=== PATIENT | female | born 1960 | race Caucasian/White ===

== ENCOUNTER → 2019-11-29 13:51 | Outpatient (CLI) | payer OTHER, BC, SELFPAY ==
--- NOTE | ~2019-11-29 | XR_ITS ---
EXAMINATION: XR abdomen/kub 1V DATE: 11/29/2019 14:09 INDICATION: Abnormal capsule endoscopy study 2 weeks prior. Deficiency anemia. TECHNIQUE: A supine view of the abdomen on 2 radiographs was obtained. COMPARISON: CT dated 08/22/2019 FINDINGS: Cholecystectomy clips in the right upper quadrant. Gastric stimulator ejects over the left lower quad rant with 2 leads with distal tips projecting over the body of the stomach. Moderate amount of gas sc attered throughout the colon with additional gas filling the appendix in the right lower quadrant. No dilated loops of gas-filled bowel to suggest obstruction. The reported capsule endoscope is not visu alized. Lung bases are clear. Moderate lumbar spondylosis. IMPRESSION: 1. Normal bowel gas pattern. No capsular endoscope identified although very small portion of the late ralmost left abdomen is excluded from the bccpv-wv-uinj and a small portion of the left lower quadran t of the abdomen is obscured by a gastric stimulator. Reviewed, dictated and finalized at location A. ARY SERVICE AIDE IMPRESSION: 1. Normal bowel gas pattern. No capsular endoscope identified although very sma ll portion of the lateralmost left abdomen is excluded from the wgmqr-bn-isou a nd a small portion of the left lower quadrant of the abdomen is obscured by a g astric stimulator.
== END ==
PROVIDERS: PCP Family Medicine Adolescent Medicine
DX: D50.9 Iron deficiency anemia, unspecified (principal); R63.4 Abnormal weight loss
CPT/HCPCS: 74018

== ENCOUNTER → 2020-08-01 15:39 | Outpatient (CLI) | payer OTHER, BC, SELFPAY ==
--- NOTE | ~2020-08-01 | XR_ITS ---
EXAMINATION: XR lumbar spine 2-3V DATE: 08/01/2020 16:12 INDICATION: Low back pain. TECHNIQUE: 3 views of lumbar spine were obtained. COMPARISON: CT abdomen and pelvis 08/12/2019 FINDINGS: There is 6 degrees dextrocurvature of lumbar spine. There is 3 mm retrolisthesis of L3 on L 4. There is mild chronic anterior wedging of T12 and L1 vertebral bodies. There is mildly decreased d isc height at L2-L3 and severely decreased disc height at L3-L4. There is multilevel moderate to diallo re facet joint osteoarthritis. Surgical clips in the right upper quadrant are likely from cholecystec latha. IMPRESSION: 1. Severe lumbar spondylosis. Reviewed, dictated and finalized at location A.
== END ==
PROVIDERS: PCP Family Medicine Adolescent Medicine; Visit Provider Family Medicine Adolescent Medicine
DX: M54.5 Low back pain (principal); M47.816 Spondylosis without myelopathy or radiculopathy, lumbar region
CPT/HCPCS: 72100

== ENCOUNTER → 2020-11-08 16:09 | Outpatient (CLI) | payer OTHER, BC, SELFPAY ==
--- NOTE | ~2020-11-08 | MM_ITS ---
EXAMINATION: MM screening [facility] BI w jay HISTORY: Screening mammogram TECHNIQUE: Craniocaudal and mediolateral oblique 3-D tomosynthesis images were obtained and synthetic 2-D images were generated. CAD analysis was submitted and interpreted. COMPARISON: 09/15/2017, 12/14/2013, 11/30/2013 BREAST PARENCHYMAL COMPOSITION: There are scattered areas of fibroglandular density. FINDINGS: There is no evidence of suspicious mass, calcification, or architectural distortion to sugg est malignancy in either breast. There has been no suspicious interval change. IMPRESSION: 1. No mammographic evidence of malignancy. 2. Recommend routine screening mammography in one year. BI-RADS Category 1: Negative Reviewed, dictated and finalized at location A. HANDISING LEAD
== END ==
PROVIDERS: PCP Family Medicine Adolescent Medicine; Visit Provider Obstetrics & Gynecology
DX: Z12.31 Encounter for screening mammogram for malignant neoplasm of breast (principal)
CPT/HCPCS: 77063; 77067

== ENCOUNTER 2021-09-23 11:33 | Outpatient (CLI) | payer OTHER, BC, SELFPAY ==
[2021-09-23 12:10] LABS: Hemoglobin 14.9 g/dL (12.0-15.0); Mean Corpuscular HGB Conc 31.7 g/dl (32-36); Mean Corpuscular Hemoglobin 30.8 pg (26-34); Mean Corpuscular Volume 97.3 fl (80-100); Mean Platelet Volume 9.7 fl (7.4-10.4); Platelet Count Result 207 k/mm3 (150-375); Red Blood Count 4.83 M/mm3 (4.2-5.4); Red Cell Distribution Width 13.2 % (11.5-14.5); White Blood Count 7.2 K/mm3 (4.5-10.0)
[2021-09-23 12:19] LABS: Alanine Aminotransferase 18 U/L (4-35); Albumin Level 4.5 g/dL (3.5-5.1); Alkaline Phosphatase 106 U/L (38-126); Anion Gap 6 mmol/L (8-16); Aspartate Amino Transferase 27 U/L (14-36); Bilirubin,Total 0.5 mg/dL (0.2-1.3); Blood Urea Nitrogen 13 mg/dL (7-17); Calcium 9.1 mg/dL (8.4-10.2); Carbon Dioxide 26 mmol/L (22-30); Chloride 105 mmol/L (98-107); Estimated Glomerular Filt Rate > 60; Glucose 66 mg/dL (65-110); Potassium 3.9 mmol/L (3.4-5.0); Sodium 137 mmol/L (137-145)
[2021-09-27 05:14] LABS: Insulin Level Total 6.1 uIU/mL (<=19.6)
== END 2021-09-23 11:34 | disposition home or self-care (01) ==
LOC: ANHLAB 11:37
PROVIDERS: PCP Family Medicine Adolescent Medicine; Visit Provider Family Medicine Adolescent Medicine
DX: D50.9 Iron deficiency anemia, unspecified (principal); R53.83 Other fatigue; E16.2 Hypoglycemia, unspecified
CPT/HCPCS: 36415; 80053; 83525; 85027

== ENCOUNTER 2024-02-09 10:50 | Outpatient (CLI) | payer BC, SELFPAY | END 2024-02-09 10:51 | disposition home or self-care (01) | LOC: ANHAUDIO 10:51 | PROVIDERS: PCP Family Medicine Adolescent Medicine; Visit Provider Family Medicine Adolescent Medicine | DX: H90.3 Sensorineural hearing loss, bilateral (principal); H93.13 Tinnitus, bilateral | CPT/HCPCS: 92557; 92567 ==

== ENCOUNTER 2024-08-13 09:40 | Emergency (ER) | payer MEDICARE, SELFPAY ==
--- NOTE | 2024-08-13 09:43 | ED.FEMALEGU ---
HPI - Female Genitourinary General Chief complaint: Urogenital-Female Stated complaint: Urinary Problems Time Seen by Provider: 08/13/24 09:41 Source: patient Mode of arrival: ambulatory Limitations: no limitations History of Present Illness HPI Narrative: Ana is a 63-year-old female patient presenting to the clinic today complaints of possible UTI. She reports she has been having lower suprapubic pain, low back pain, urinary frequency, urgency, and some burning with urination/dark colored urine. States symptoms started 3 days ago. No known fever or chills. She states that she is getting ready to go on a trip to [place]. Last bowel movement was yesterday and hard. Took hydrocodone this morning for the discomfort. Related Data Home Medications Medication Instructions Recorded Confirmed prochlorperazine maleate 10 mg 10 mg PO Q8H PRN Nausea And 06/11/22 08/13/24 tablet Vomiting omeprazole 40 mg capsule,delayed 40 mg PO DAILY 08/13/24 08/13/24 release ondansetron 4 mg disintegrating 4 mg PO Q6H 08/13/24 08/13/24 tablet Allergies Allergy/AdvReac Type Severity Reaction Status Date / Time metoclopramide Allergy Intermediate Anaphylactic Verified 08/13/24 09:55 Shock Review of Systems Review of Systems: Pertinent positives per HPI. Patient denies any fever, chills, rash, headache, visual changes, dizziness, cough, runny nose, sore throat, shortness of breath, chest pain, palpitations, nausea, vomiting, diarrhea. PMFSH Past Medical History Medical History Abnormal uterine bleeding Anemia Ankle fracture, left Back pain Depression Diverticulitis Endometriosis Gastroparesis GERD (gastroesophageal reflux disease) Hiatal hernia History of blood transfusion Hypertension Migraines Pancreatitis (2015) Rectal polyp Seasonal allergies Surgical History Surgical History History of arthroscopy of left knee History of bladder surgery History of section History of cholecystectomy History of colonoscopy History of hysterectomy History of repair of hiatal hernia (02/2019) History of tubal ligation Hx of local excision of skin lesion Family History Family History Father Malignant neoplasm of prostate Family history of diabetes mellitus in first degree relative Mother Acute myocardial infarction Other Diabetes mellitus Family history of cardiovascular disease Hypertension Social History Social History Smoking status: Former smoker Tobacco type: cigarettes Alcohol intake: current Gender identity (if verbalized by the patient): Female Comments At the time of my signature, I reviewed and agree with the nursing past medical, surgical, social, and family history. There is no relevant family history pertinent to the patient complaint. Exam Narrative: General: Well-developed, obese in no apparent distress. Head: Normocephalic, atraumatic. Cardio: Regular rate and rhythm, s1 and s2 normal, no murmur appreciated. Resp: Clear to auscultation bilaterally, no rhonchi, rales, wheezing or rubs. Abdomen: Soft, pliable, bowel sounds present in all quadrants, suprapubic tender to palpation, no organomegly, no CVAT tenderness. Course Course Emergency Course: Portions of this record may have been created with voice recognition software. Level of Care: Express Care Visit Vital Signs Vital signs: Vital signs reviewed MDM - Female Genitourinary MDM Narrative Medical decision making narrative: At the time of visit patient is resting comfortably on the exam table. Patient appears to be nontoxic. Labs: UA dip positive for trace of blood protein, trace of blood, bili, and specific gravity was high. Plan: I suspect patient is having UTI symptoms-possibly constipation as well. Will send in a 5 day course of Macrobid and send urine for culture as patient is having UTI symptoms with protein urea. Supportive measures were discussed with the patient and they voiced understanding discharge instructions and agrees to treatment plan. Return precautions reviewed Differential Diagnosis Differential diagnosis: Likely urinary tract infection and cystitis Discharge Plan Discharge Clinical Impression: Symptoms of urinary tract infection Patient Disposition: Home, Self-Care Condition: Stable Instructions: Antibiotic Form, Urinary Tract Infection in Women (ED) Additional Instructions: Increase fluids and fiber in your diet May take MiraLax daily as needed for constipation Urinalysis shows trace of protein, trace of blood, bili, and high specific gravity. We will send urine for culture Take Macrobid as prescribed May take oimz-flv-iqroqow azo for your symptoms Follow-up with your primary care doctor in 5-7 days if symptoms persist or sooner if they worsen Prescriptions: New nitrofurantoin monohyd/m-cryst [Macrobid] 100 mg capsule 100 mg PO Q12H 5 Days Qty: 10 0RF Rx Instructions: must administer with a meal/food No Action ondansetron 4 mg Tablet,Disintegrating 4 mg PO Q6H omeprazole [Prilosec] 40 mg Capsule,Delayed Release(Dr/Ec) 40 mg PO DAILY prochlorperazine maleate 10 mg tablet 10 mg PO Q8H PRN (Reason: Nausea And Vomiting) venlafaxine 75 mg capsule,extended release 24hr See Rx Instructions .ROUTE .COMPLEX Qty: 90 3RF Dose Instruction: TAKE ONE CAPSULE BY MOUTH DAILY Rx Instructions: TAKE ONE CAPSULE BY MOUTH DAILY oopsqiohwd-adcfdoilqhdxe-snjh [Fioricet] 50-300-40 mg capsule 1 cap PO TID PRN (Reason: migraine headache) Qty: 14 0RF valsartan 320 mg tablet 320 mg PO DAILY Qty: 90 2RF diltiazem HCl 180 mg capsule,extended release 24hr See Rx Instructions .ROUTE .COMPLEX Qty: 90 3RF Dose Instruction: TAKE 1 CAPSULE BY MOUTH DAILY Rx Instructions: TAKE 1 CAPSULE BY MOUTH DAILY lorazepam 1 mg tablet 1 mg PO BID PRN (Reason: anxiety) Qty: 180 1RF hydrocodone-acetaminophen 5-325 mg tablet 1 tablet PO TID PRN (Reason: pain) Qty: 90 0RF Follow-up/Referrals: Neymar Rueda MD [Primary Care Provider] - Time of Disposition: 10:09 Quality NIHSS Nursing Documentation ED NIHSS nursing documentation: reviewed/agree
[2024-08-13 09:53] VITALS: BP 132/93; PULSE 77; RESP 18; TEMP 36.3; O2SAT 97
[2024-08-13 09:58] VITALS: BP 132/93; PULSE 77; RESP 18; TEMP 36.3; O2SAT 97
[2024-08-13 09:59] LABS: EDUAAPPEAR Cloudy; EDUABILI 1+ (Negative); EDUABLOOD Trace (Negative); EDUACOLOR1 Yellow; EDUAGLUCOSE Negative (Negative); EDUAKETONE Trace (Negative); EDUALEUKO Negative (Negative); EDUANITRATE Negative (Negative); EDUAPH 5.5; EDUAPROTEIN Trace (Negative)
== END 2024-08-13 10:15 | disposition home or self-care (01) ==
PROVIDERS: Emergency Provider Nurse Practitioner Family; PCP Family Medicine Adolescent Medicine
DX: R30.0 Dysuria (principal); R35.0 Frequency of micturition; R39.15 Urgency of urination; R10.30 Lower abdominal pain, unspecified; M54.50 Low back pain, unspecified; Z80.9 Family history of malignant neoplasm, unspecified; K21.9 Gastro-esophageal reflux disease without esophagitis; I10 Essential (primary) hypertension; Z87.891 Personal history of nicotine dependence
CPT/HCPCS: 81003; 87086; 99213; G0463

== ENCOUNTER 2025-08-02 07:12 | Outpatient (CLI) | payer MEDICARE, SELFPAY ==
--- OUTSIDE RECORDS SUMMARY | 2024-06-09 07:46 | XMS_ITS ---
Author Organization [facility] Address [address] [address] Care Team Providers Care Audio Experience Expert Name Role Phone Neymar Calvin Primary Care Provider Unavail neela Coon MD, Valdemar [facility] REASON FOR VISIT refill MEDICATIONS Medication SIG (Take, Route, Fr equency, Duration) Notes Start Date End Date Status oxyCODONE HCl 5 MG 1-2 tablet as needed , max daily allowance: 6 tablets Orally every 4-6 hrs 06/09/2024 Active Encounters Encounter Location Date Provider Diagnosis [facility] [address] [address] 06/09/2024 Valdemar Coon MD PLAN OF TREATMENT Medication Medication Name Sig Start Date Stop Date Notes oxyCODONE HCl 5 MG 1-2 tablet as needed , max daily allowance: 6 tablets Orally every 4-6 hrs 06/09/2024
--- OUTSIDE RECORDS SUMMARY | 2024-06-24 05:30 | XMS_ITS ---
Author Organization [facility] Address [address], [place] [address] Care Team Providers Care Therapy Aide Name Role Phone Neymar Calvin Primary Care Provider Unavail neela Coon MD, Valdemar [facility] [phone] REASON FOR VISIT refill MEDICATIONS Medication SIG (Take, Route, Fr equency, Duration) Notes Start Date End Date Status oxyCODONE HCl 5 MG 1-2 tablet as needed , max daily allowance: 6 tablets Orally every 4-6 hrs 06/24/2024 Active Encounters Encounter Location Date Provider Diagnosis [facility] [address], [place] [address] 06/24/2024 Valdemar Coon MD PLAN OF TREATMENT Medication Medication Name Sig Start Date Stop Date Notes oxyCODONE HCl 5 MG 1-2 tablet as needed , max daily allowance: 6 tablets Orally every 4-6 hrs 06/24/2024
--- OUTSIDE RECORDS SUMMARY | 2024-07-01 04:13 | XMS_ITS ---
Author Organization [facility] Address [address] [address] Care Team Providers Care Hot Metal Mixer Operator Name Role Phone Neymar Calvin Primary Care Provider Unavail able Shaggy MERINO, Valdemar Unavailable REASON FOR VISIT PT Order Encounters Encounter Location Date Provider Diagnosis [facility] [address] [place] [address] 07/01/2024 Valdemar Coon MD PLAN OF TREATMENT No Information
--- OUTSIDE RECORDS SUMMARY | 2024-07-11 07:10 | XMS_ITS ---
Author Organization [facility] Address [address] [address] Care Team Providers Care Market Research Coordinator Name Role Phone Neymar Calvin Primary Care Provider Unavail neela Coon MD, Valdemar [facility] REASON FOR VISIT refill MEDICATIONS Medication SIG (Take, Route, Fr equency, Duration) Notes Start Date End Date Status oxyCODONE HCl 5 MG 1-2 tablet as needed , max daily allowance: 6 tablets Orally every 4-6 hrs 07/11/2024 Active Encounters Encounter Location Date Provider Diagnosis [facility] [address], [place] [address] 07/11/2024 Valdemar Coon MD PLAN OF TREATMENT Medication Medication Name Sig Start Date Stop Date Notes oxyCODONE HCl 5 MG 1-2 tablet as needed , max daily allowance: 6 tablets Orally every 4-6 hrs 07/11/2024
--- OUTSIDE RECORDS SUMMARY | 2024-07-20 09:49 | XMS_ITS ---
Author Organization [facility] Address [address] [address] Care Team Providers Care Heel Scourer Name Role Phone Neymar Calvin Primary Care Provider Unavail neela Coon MD, [facility] REASON FOR VISIT tramadol MEDICATIONS Medication SIG (Take, Route, Fr equency, Duration) Notes Start Date End Date Status traMADol HCl 50 MG 1 tablet as needed O rally every 6 hours 07/20/2024 Active Encounters Encounter Location Date Provider Diagnosis [facility] [address] [address] 07/20/2024 Valdemar Coon MD PLAN OF TREATMENT Medication Medication Name Sig Start Date Stop Date Notes traMADol HCl 50 MG 1 tablet as needed Orally every 6 hours 07/20/2024
--- OUTSIDE RECORDS SUMMARY | 2024-07-20 10:00 | XMS_ITS ---
Author Organization [facility] Address [address] [place] [address] Care Team Providers Care Glass Wool Blanket Machine Feeder Name Role Phone Neymar Calvin Primary Care Provider Unavail able Shaggy MERINO, Valdemar Unavailable [phone] ALLERGIES Allergen (clinical drug ingredient) Drug/Non Drug Allergy documented on EMR Reaction Allergy Type Onset Date Status metoclopramide Reglan Unknown Drug Allergy Ac tive MEDICATIONS Medication SIG (Take, Route, Frequency, Duration) Notes Start Date End Date Status Prochlorperazine Prn for nausea; Prescribed By: Dr Villeda Active LORazepam Unknown Dilt-CD Qd; Prescribed By: Active Valsartan Unknown dilTIAZem HCl Unknow n Acarbose Unknown oxyCODONE HCl 5 MG 1-2 tablet as needed, max daily allowance: 6 tablets Orally every 4-6 hrs 05/19/2024 Not-Taking Venlafaxine HCl Unkn own oxyCODONE HCl 5 MG 1-2 tablet as needed, max daily allowance: 6 tablets Orally every 4-6 hrs 07/11/2024 Active oxyCODONE HCl 5 MG 1-2 tablet as needed, max daily allowance: 6 tablets Orally every 4-6 hrs 06/24/2024 Not-Taking Ondansetron Prn/nausea; Prescribed By: Active oxyCODONE HCl 5 MG 1-2 tablet as needed, max daily allowance: 6 tablets Orally every 4-6 hrs 06/09/2024 Not-Taking oxyCODONE HCl 5 MG 1-2 tablet as needed, max daily allowance: 6 tablets Orally every 4-6 hrs 06/03/2024 Not-Taking SOCIAL HISTORY Tobacco Use: Social History Observation Description Date Details (start date - stop date) Former Smoker 10/05/1978 - 10/05/1998 Sex Assigned At : Social History Observation Description Sex Assigned At Unknown Tobacco Use: Question Answer Notes Patient is a: former smoker When did you start smoking? 10/05/1978 When did you stop smoking? 10/05/1998 Alcohol screening: Question Answer Notes Did you have a drink contain ing alcohol in the past year? Yes How often did you have a dri nk containing alcohol in the past year? Two to three times per week (3 points) How many drinks did you have on a typical day when you were drinking in the past year? 3 or 4 (1 point) How often did you have six o r more drinks on one occasion in the past year? Less than monthly (1 point) Points 5 Interpretation Positive Encounters Encounter Location Date Provider Diagnosis [facility] [address], [place] [address] 07/20/2024 Valdemar Coon MD Aftercare following joint replacement surgery Z47.1 and Presence of left artificial knee joint Z96.652 ASSESSMENTS Encounter Date Diagnosis Assessment Notes Treatment Notes Treatment Clinical Notes 07/20/2024 Aftercare following joint replacement surgery (ICD-10 - Z47.1) 07/20/2024 Presence of left artificial knee joint (ICD-10 - Z96.652) PLAN OF TREATMENT No Information History and Physical Notes * HPI (History of Present Illness) Category Sub-Category Detail Notes Depression Screening PHQ-2 (2015 Edition) Little interest or pleasure in doing things?: Several days Feeling down, depressed, or hopeless?: S everal days Total Score: 2
--- OUTSIDE RECORDS SUMMARY | 2024-08-25 06:15 | XMS_ITS ---
Author Organization [facility] Address [address] [address] Care Team Providers Care Tent Assembler Name Role Phone Neymar Calvin Primary Care Provider Unavail able Shaggy MERINO, Valdemar Unavailable REASON FOR VISIT refill Encounters Encounter Location Date Provider Diagnosis [facility] [address] [place] [address] 08/25/2024 Valdemar Coon MD PLAN OF TREATMENT No Information
--- OUTSIDE RECORDS SUMMARY | 2024-08-31 09:00 | XMS_ITS ---
Author Organization [facility] Address [address] [place] [address] Care Team Providers Care Jewel Bearing Maker Name Role Phone Neymar Calvin Primary Care Provider Unavail able hSaggy MERINO, Valdemar Unavailable ALLERGIES Allergen (clinical drug ingredient) Drug/Non Drug Allergy documented on EMR Reaction Allergy Type Onset Date Status metoclopramide Reglan Unknown Drug Allergy Ac tive MEDICATIONS Medication SIG (Take, Route, Frequency, Duration) Notes Start Date End Date Status dilTIAZem HCl Unknow n Venlafaxine HCl Unkn own Dilt-CD Qd; Prescribed By: Active Valsartan Unknown LORazepam Unknown Acarbose Unknown oxyCODONE HCl 5 MG 1-2 tablet as needed, max daily allowance: 6 tablets Orally every 4-6 hrs 06/24/2024 Not-Taking oxyCODONE HCl 5 MG 1-2 tablet as needed, max daily allowance: 6 tablets Orally every 4-6 hrs 05/19/2024 Not-Taking oxyCODONE HCl 5 MG 1-2 tablet as needed, max daily allowance: 6 tablets Orally every 4-6 hrs 06/03/2024 Not-Taking oxyCODONE HCl 5 MG 1-2 tablet as needed, max daily allowance: 6 tablets Orally every 4-6 hrs 06/09/2024 Not-Taking Ondansetron Prn/nausea; Prescribed By: Dr.ROGELIO Active oxyCODONE HCl 5 MG 1-2 tablet as needed, max daily allowance: 6 tablets Orally every 4-6 hrs 07/11/2024 Active Prochlorperazine Prn for nausea; Prescribed By: Dr Villeda Active SOCIAL HISTORY Tobacco Use: Social History Observation [...] monthly (1 point) Points 5 Interpretation Positive VITAL SIGNS Height 69 in 08/31/2024 Weight 290 lbs 08/31/2024 BMI 42.82 kg/m2 08/31/2024 Encounters Encounter Location Date Provider Diagnosis [facility] [address] [place] [address] 08/31/2024 Valdemar Coon MD Encounter for follow-up Z09 and Presence of left artificial knee joint Z96.652 ASSESSMENTS Encounter Date Diagnosis Assessment Notes Treatment Notes Treatment Clinical Notes 08/31/2024 Encounter for follow-up (ICD-10 - Z09) 08/31/2024 Presence of left artificial knee joint (ICD-10 - Z96.652) PLAN OF TREATMENT No Information History and Physical Notes * HPI (History of Present Illness) Category Sub-Category Detail Notes Depression Screening PHQ-2 (2015 Edition) Little interest or pleasure in doing things?: Several days Feeling down, depressed, or hopeless?: S everal days Total Score: 2
--- OUTSIDE RECORDS SUMMARY | 2024-08-31 09:16 | XMS_ITS ---
Author Organization [facility] Address [address] [address] Care Team Providers Care Analog Ic Design Engineer Name Role Phone Neymar Calvin Primary Care Provider Unavail neela Coon MD, [facility] REASON FOR VISIT Tramadol MEDICATIONS Medication SIG (Take, Route, Fr equency, Duration) Notes Start Date End Date Status traMADol HCl 50 MG 1-2 tablets as neede d Orally q 12 hours for 7 days 08/31/2024 Active Encounters Encounter Location Date Provider Diagnosis [facility] [address] [address] 08/31/2024 Valdemar Coon MD PLAN OF TREATMENT Medication Medication Name Sig Start Date Stop Date Notes traMADol HCl 50 MG 1-2 tablets as neede d Orally q 12 hours for 7 days 08/31/2024
--- OUTSIDE RECORDS SUMMARY | 2024-11-11 05:00 | XMS_ITS ---
Author Organization [facility] Address [address] [place] [address] Care Team Providers Care Slotter Operator Name Role Phone Neymar Calvin Primary Care Provider Unavail neela Coon MD, Valdemar Unavailable [phone] Encounters Encounter Location Date Provider Diagnosis [facility] [address] [place] [address] 11/11/2024 Valdemar Coon MD PLAN OF TREATMENT No Information
--- NOTE | ~2025-08-02 | MM_ITS ---
EXAMINATION: MM screening reddy BI w jay HISTORY: Screening TECHNIQUE: Craniocaudal and mediolateral oblique 3-D tomosynthesis images were obtained and synthetic 2-D images were generated. CAD analysis was submitted and interpreted. COMPARISON: Comparison to multiple prior studies sequentially, with oldest reviewed study dated 09/15/2017. BREAST PARENCHYMAL COMPOSITION: Not dense: There are scattered areas of fibroglandular density. FINDINGS: There are developing clustered indeterminate calcifications in the upper outer quadrant of the right breast, middle third. There are punctate scattered calcifications of the left breast which are not particularly clustered and are monomorphic, benign-appearing. There are no new masses, calcifications or architectural distortion in the left breast to suggest malignancy. IMPRESSION: 1. Developing clustered indeterminate calcifications upper outer quadrant of the right breast. 2. Magnification views are recommended. BI-RADS Category 0: Incomplete: Needs additional imaging evaluation. Reviewed, dictated and finalized at location C. IMPRESSION: 1. Developing clustered indeterminate calcifications upper outer quadrant of th e right breast. 2. Magnification views are recommended. BI-RADS Category 0: Incomplete: Needs additional imaging evaluation.
--- OUTSIDE RECORDS SUMMARY | 2025-08-02 07:20 | XMS_ITS | Encounter Summary ---
Author Organization [facility] Address [address] [place] [address] Phone Care Team Providers Care Children'S Ministries Director Name Role Phone Neymar Rueda MD Primary Care Prov ider Miguelito Reese MD Unavailable [phone] Encounter Details Date Type Department Care Team (Late st Contact Info) Description 04/28/2024 Telephone [facility] ([facility] - [facility] Minimally Invasive Surgery [address] Advanced Medicine 12th Floor, [place] [address] Edward Noe MD PhD [address] [place] [address] Social History Tobacco Use Types Packs/Day Years Used Date Smoking Tobacco: Former Cigarettes 2 19 - 1992 Smokeless Tobacco: Never Alcohol Use Standard Drinks/Week Comments No 0 (1 standard drink = 0.6 oz pur e alcohol) AUDIT-C Answer Date Recorded Q1: How often do you have a drink containing alc ohol? Monthly or less 03/31/2023 Q2: How many drinks containi ng alcohol do you have on a typical day when you are drinking? 1 or 2 03/31/2023 Q3: How often do you have si x or more drinks on one occasion? Never 03/31/2023 Personal Safety Answer Date Recorded Have you ever been in or are you currently in a harmful physical or emotional relationship or is someone making you feel afraid or unsafe? Denies 03/31/2023 Comments No Sex and Gender Information Value Date Recorded Sex Assigned at Not on file Legal Sex Female 9:02 AM FORGING PRESS OPERATOR Gender Identity Not on file Sexual Orientation Not on file documented as of this encounter Plan of Treatment Upcoming Encounters Date Type Department Care Team (Latest Contact Info) Description 08/10/2025 7:30 AM FORGING PRESS OPERATOR Hospital Encounter [facility] Operating [address] [place] [address] Jad Trujillo MD [address] [id number] [place] [address] 08/10/2025 7:30 AM FORGING PRESS OPERATOR Anesthesia Event [facility] Operating [address] [place] [address] Harleen Wells B.A. 08/10/2025 7:30 AM FORGING PRESS OPERATOR - 08/10/2025 10:45 AM FORGING PRESS OPERATOR Surgery [facility] [address] [place] [address] Jad Trujillo MD [address] [id number] [place] [address] XI REPAIR VENTRAL HERNIA - LAPAROSCPIC ROBOTIC ASSISTED Scheduled Procedures Name Priority Associated Diagnoses Date/Ti me XI REPAIR VENTRAL HERNIA - LAPAROSCPIC ROBOTIC ASSISTED Incarcerated incisional hernia 08/10/2025 7:30 AM FORGING PRESS OPERATOR documented as of this encounter Visit Diagnoses Not on filedocumented in this encounter Care Teams Children'S Ministries Director Relationship Specialty Start Date End Date Neymar Rueda MD PCP - General 01/21/17 Miguelito Reese MD Consulting Physician General Surgery 02/03/19 documented as of this encounter
--- OUTSIDE RECORDS SUMMARY | 2025-08-02 07:20 | XMS_ITS | Encounter Summary ---
Author Organization [facility] Address [address] [facility] [address] [place] [address] Phone Care Team Providers Care Machine Driller Name Role Phone Neymar Rueda MD Primary Care Prov ider Miguelito Reese MD Unavailable [phone] Encounter Details Date Type Department Care Team (Late st Contact Info) Description 11/15/2019 Orders Only [facility] Scanning, Provider Social History Tobacco Use Types Packs/Day Years Used Date Smoking Tobacco: Former Cigarettes 2 19 1 974 - 1992 Smokeless Tobacco: Never Alcohol Use Standard Drinks/Week Comments No 0 (1 standard drink = 0.6 oz pur e alcohol) Comments No Sex and Gender Information Value Date Recorded Sex Assigned at Not on file Legal Sex Female 9:02 AM RESCUE INSTRUCTOR Gender Identity Not on file Sexual Orientation Not on file documented as of this encounter Plan of Treatment Upcoming Encounters Date Type Department Care Team (Latest Contact Info) Description 08/10/2025 7:30 AM RESCUE INSTRUCTOR Hospital Encounter [facility] Operating Room [address] [place] [phone] Jad Trujillo MD [address] [facility] [phone] [place] [address] 08/10/2025 7:30 AM RESCUE INSTRUCTOR Anesthesia Event [facility] Operating [address] [place] [address] Harleen Wells B.A. 08/10/2025 7:30 AM RESCUE INSTRUCTOR - 08/10/2025 10:45 AM RESCUE INSTRUCTOR Surgery [facility] Operating Room [address] [place] [address] Jad Trujillo MD [address] [facility] [phone] [place] [address] XI REPAIR VENTRAL HERNIA - LAPAROSCPIC ROBOTIC ASSISTED Scheduled Procedures Name Priority Associated Diagnoses Date/Ti me XI REPAIR VENTRAL HERNIA - LAPAROSCPIC ROBOTIC ASSISTED Incarcerated incisional hernia 08/10/2025 7:30 AM RESCUE INSTRUCTOR documented as of this encounter Procedures Procedure Name Priority Date/Time Associated Diagnosis Comments SCAN - LABS 11/15/2019 documented in this encounter Results * SCAN - LABS (11/15/2019) Provider Scanning Final Result documented in this encounter Visit Diagnoses Not on filedocumented in this encounter Care Teams Machine Driller Relationship Specialty Start Date End Date Neymar Rueda MD PCP - General 01/21/17 Miguelito Reese MD Consulting Physician General Surgery 02/03/19 documented as of this encounter
--- OUTSIDE RECORDS SUMMARY | 2025-08-02 07:21 | XMS_ITS | Encounter Summary ---
Author Organization [facility] Address [address] [place] [address] Phone Care Team Providers Care Coin Machine Operator Name Role Phone Neymar Rueda MD Primary Care Prov ider Miguelito Reese MD Unavailable [phone] Encounter Details Date Type Department Care Team (Latest Contact Info) Description 07/06/2025 Results Follow-Up [facility] Endocrinology Metabolism and Lipid [address] [facility] 13th [place] [address] [place] [address] Jared Monterroso MD PhD [address] [place] [address] Thyroid Function [place] Social History Tobacco Use Types Packs/Day Years Used Date Smoking Tobacco: Former Cigarettes 2 19 - 1992 Passive Smoke Exposure: Past Smokeless Tobacco: Never Alcohol Use Standard Drinks/Week Comments No 0 (1 standard drink = 0.6 oz pur e alcohol) AUDIT-C Answer Date Recorded Q1: How often do you have a drink containing alc ohol? 2-4 times a month 11/22/2024 Q2: How many drinks containi ng alcohol do you have on a typical day when you are drinking? 1 or 2 11/22/2024 Q3: How often do you have si x or more drinks on one occasion? Never 11/22/2024 Personal Safety Answer Date Recorded Have you ever been in or are you currently in a harmful physical or emotional relationship or is someone making you feel afraid or unsafe? Denies 11/22/2024 Comments No Sex and Gender Information Value Date Recorded Sex Assigned at Not on file Legal Sex Female 9:02 AM INSTALLATION HELPER Gender Identity Not on file Sexual Orientation Not on file documented as of this encounter Plan of Treatment Upcoming Encounters Date Type Department Care Team (Latest Contact Info) Description 08/10/2025 7:30 AM INSTALLATION HELPER Hospital Encounter [facility] Operating Room [address] [place] [address] Jad Trujillo MD [address] [id number] [place] [address] 08/10/2025 7:30 AM INSTALLATION HELPER Anesthesia Event [facility] Operating [address] [place] [address] Harleen Wells B.A. 08/10/2025 7:30 AM INSTALLATION HELPER - 08/10/2025 10:45 AM INSTALLATION HELPER Surgery [facility] Operating [address] [place] [address] Jad Trujillo MD [address] [id number] [place] [address] XI REPAIR VENTRAL HERNIA - LAPAROSCPIC ROBOTIC ASSISTED Scheduled Procedures Name Priority Associated Diagnoses Date/Ti me XI REPAIR VENTRAL HERNIA - LAPAROSCPIC ROBOTIC ASSISTED Incarcerated incisional hernia 08/10/2025 7:30 AM INSTALLATION HELPER documented as of this encounter Visit Diagnoses Not on filedocumented in this encounter Care Teams Coin Machine Operator Relationship Specialty Start Date End Date Neymar Rueda MD PCP - General 01/21/17 Miguelito Reese MD Consulting Physician General Surgery 02/03/19 documented as of this encounter
--- OUTSIDE RECORDS SUMMARY | 2025-08-02 07:21 | XMS_ITS | Patient Health Record ---
Author Organization [facility] Address [address] [facility] [address] [place] [address] Care Team Providers Care Health Professional Name Role Phone Neymar Calvin Primary Care Provider Unavail able Shaggy MERINO, Valdemar Unavailable [phone] ALLERGIES Allergen (clinical drug ingredient) Drug/Non Drug Allergy documented on EMR Reaction Allergy Type Onset Date Status metoclopramide Reglan Unknown Drug Allergy Ac tive REASON FOR REFERRAL No Information MEDICATIONS Medication SIG (Take, Route, Frequency, Duration) Notes Start Date End Date Status Acarbose Unknown Venlafaxine HCl Unkn own oxyCODONE HCl 5 [...] hrs 06/09/2024 Not-Taking Ondansetron Prn/nausea; Prescribed By: Active oxyCODONE HCl 5 MG 1-2 tablet as needed, max daily allowance: 6 tablets Orally every 4-6 hrs 07/11/2024 Active Dilt-CD Qd; Prescribed By: Active Valsartan Unknown Prochlorperazine Prn for nausea; Prescribed By: Dr Villeda Active LORazepam Unknown traMADol HCl 50 MG 1-2 tablets as needed Orally q 12 hours for 7 days 08/31/2024 Active dilTIAZem HCl Unknow n IMMUNIZATIONS Vaccine Route Administration Date Status Comme nts Influenza Unknown 10/09/2022 Administered pneumoccocal Unknown 10/09/2022 Refused SOCIAL HISTORY Tobacco Use: Social History Observation [...] monthly (1 point) Points 5 Interpretation Positive PROBLEMS Problem Type ICD Code Onset Dates Problem Status W/U Status Risk SNOMED Code Notes Problem Localized osteoarthritis of left lower leg (M17.12) 07/09/20 22 Active confirmed Osteoarthritis o f knee (976329631) Problem Morbid obesity (E66.01) 10/09/19 23 Active confirmed Morbid obesity (000569765) Problem Body mass index (BMI) 40.0-44.9, adult (Z68.41) 10/09/19 23 Active confirmed Body mass index 40+ - severely obese (778093647) Problem Bilateral primary osteoarthritis of knee (M17.0) Active confirmed 533082274 Problem Aftercare following joint replacement surgery (Z47.1) 05/09/20 24 Active confirmed 033091589 Problem Presence of left artificial knee joint (Z96.652) 05/09/20 24 Active confirmed [id number] VITAL SIGNS Height 69 in 08/31/2024 Weight 290 lbs 08/31/2024 BMI 42.82 kg/m2 08/31/2024 Encounters Encounter Location Date Provider Diagnosis [facility] [address] [facility] [place] [address] 11/11/2024 Valdemar Coon MD [facility] [address] [facility] [address] [facility] [place] [address] 08/31/2024 Valdemar Coon MD Encounter for follow-up Z09 and Presence of left artificial knee joint Z96.652 [facility] [address] [facility] [place] [address] 08/25/2024 Valdemar Coon MD [facility] [address] [facility] [place] [address] 08/31/2024 Valdemar Coon MD ASSESSMENTS Encounter Date Diagnosis Assessment Notes Treatment Notes Treatment Clinical Notes 08/31/2024 Encounter for follow-up (ICD-10 - Z09) 08/31/2024 Presence of left artificial knee joint (ICD-10 - Z96.652) PLAN OF TREATMENT Pending Test Test Name Order Date EKG, CBC, CMP, PT/INR, UA, A1C, TYPE AND SCREEN 03/02/2024 Insurance Providers Payer Name Payer Address Payer Phone Subscriber Number Group Number Insured Name Patient Relationship to Insured Coverage Start Date Coverage End Date [employer] [address] [place] [address] [id number] Ana [place] Self - patient is the insured MEDICAL (GENERAL) HISTORY Medical History History ICD Code diabetes mellitus high blood pressure acid reflux High Blood Pressure Diabetes Obesity Surgical History Surgery Date(Month/Year) LTKA (ACS) 05/09/24 1979 1989 Removal of gallbladder 2011 Partial hysterectomy 2014 Repair of paraesophageal diaphragmatic h ernia 2019 Left hnee menis tear 1995 hysterectomy hernia repair gastric sleeve
--- OUTSIDE RECORDS SUMMARY | 2025-08-02 07:21 | XMS_ITS | Clinical Summary ---
Author Organization [facility] Address [address] [place], [address] [address] Phone Care Team Providers Care Primer Waterproofing Machine Operator Name Role Phone Neymar Rueda MD Primary Care Provider + Jose Enrique Barker DO Unavailable [phone] Chandana Terry MD Unavailable Daren Barnhart MD Unavailable [phone] Allergies No known active allergies Medications estradiol (ESTRACE) 2 MG Tablet Take 2 mg by mouth daily. Reported on 10/16/2016 Active propranolol (INDERAL) 80 MG Tablet Take 80 mg by mouth daily. Active PARoxetine (PAXIL) 20 MG Tablet Take 20 mg by mouth daily. Active Ferrous Sulfate (IRON) 325 (65 FE) MG Tablet Take by mouth daily. Reported on 10/16/2016 Active DEXILANT 60 MG CAPSULE DELAYED RELEASE Take 1 Tab by mouth daily. 11 08/30/2016 Active Active Problems Problem Noted Date Diagnosed Date Gastroesophageal reflux disease 04/03/2016 Immunizations Immunization Administration Dates Next Due Influenza Vaccine greater than 3 yrs 08/05/2015 Family History Medical History Relation Name Comments Cancer Father Diabetes Father Hypertension Mother Anemia Paternal Grandmother Relation Name Status Comments Father Mother Paternal Grandmother Social History Tobacco Use Types Packs/Day Years Used Date Smoking Tobacco: Former Cigarettes 0 Q uit: 01/09/1998 Smokeless Tobacco: Never Tobacco Cessation:Counseling Given: Yes Alcohol Use Standard Drinks/Week Comments Yes 0 (1 standard drink = 0.6 oz pur e alcohol) Comments No Sex and Gender Information Value Date Recorded Sex Assigned at Not on file Legal Sex Female 10:26 AM LAWN MOWER MECHANIC Gender Identity Not on file Sexual Orientation Not on file Last Filed Vital Signs Vital Sign Reading Time Taken Comments Blood Pressure 132/84 10/16/2016 2:57 PM LAWN MOWER MECHANIC Pulse 64 10/16/2016 2:57 PM LAWN MOWER MECHANIC Temperature 35.8 C (96.5 F) 10/16/2016 2:57 PM LAWN MOWER MECHANIC Respiratory Rate 20 10/16/2016 2:57 PM LAWN MOWER MECHANIC Oxygen Saturation 98% 10/16/2016 2:57 PM LAWN MOWER MECHANIC Inhaled Oxygen Concentration - - Weight 130 kg (286 lb 8 oz) 10/16/2016 2:[address] Height 175.3 cm (5' 9) 10/16/2016 2:57 PM LAWN MOWER MECHANIC Body Mass Index 42.31 10/16/2016 2:57 PM LAWN MOWER MECHANIC Plan of Treatment Health Maintenance Due Date Last Done Comments Hepatitis C Virus (HCV) Screening 1960 TdaP Immunization 1960 Cologuard 2004 Immunochemical Fecal Occult Blood 2004 Pneumococcal Immunization (5 0+ years) (1 of 1 - PCV) 2009 Zoster Immunization (1 of 2) 2009 Influenza Immunization (#1) 2025 08/05/2015 SARS-COV-2 Immunization ( - season) 2025 Colonoscopy 11/14/2025 11/14/2015 Colorectal Cancer Screening 11/14/2025 Respiratory Syncytial Virus (RSV) Immunization (Adult) (1 - 1-dose 75+ series) 2034 Hepatitis B Immunization Aged Out No longer eligible based on patient's age to complete this topic Human Papillomavirus (HPV) Immunization Aged Out No longer eligible b ased on patient's age to complete this topic Meningococcal Immunization (ACWY) Aged Out No longer eligible based on patient's age to complete this topic Rotavirus Immunization Aged Out No lo nger eligible based on patient's age to complete this topic Procedures Procedure Name Priority Date/Time Associated Diagnosis Comments HM COLONOSCOPY Routine 11/14/2015 from Last 3 Months or Most Recently Relevant to Health Maintenance Results * HM COLONOSCOPY (11/14/2015) us Neymar Rueda MD PROCEDURE/MINOR SURGICAL ORDERABLES Final Result from Last 3 Months or Most Recently Relevant to Health Maintenance Insurance [facility] Care Teams Primer Waterproofing Machine Operator Relationship Specialty Start Date End Date Neymar Rueda MD PCP - General Family Medicine 11/29/15 Jose Enrique Barker DO Gastroenterology 11/29/15 Chandana Terry MD [address] [place] [address] Internal Medicine 05/14/16 Daren Barnhart MD [address] [facility] [id number] [place] [address] Internal Medicine 05/14/16
--- OUTSIDE RECORDS SUMMARY | 2025-08-02 07:21 | XMS_ITS | Patient Health Record ---
Author Organization [facility] Address [address] [place] [address] Care Team Providers Care Accredited Farm Manager Name Role Phone Marybeth MERINO, Neymar Primary Care Provider Eloisa osmin DOHERTY MD, CICI Unavailable [phone] Reason For Referral No Information Medications Medication SIG (Take, Route, Frequency, Duration) Notes Start Date End Date Status Omeprazole 40 MG 1 capsule Orally Once a day; Duration: 30 day(s) Alternative for Dexilant and Pantoprazole 03/30/2018 Active Pantoprazole Sodium 40 MG 1 tablet Orally Once a day; Duration: 30 day(s) Unknown Paxil 20 MG 1 tablet in the morning Orally Once a day; Duration: 30 day(s) Unknown DICYCLOMINE 10 MG CAPSULE *please review for potential _update for e-prescription and drug interaction check* DICYCLOMINE 10 MG CAPSULE 07/14/2017 Unknown Propranolol HCl 60 MG 1 tablet Orally Twice a day; Duration: 30 day(s) Unknown Social History Tobacco Use: Social History Observation Description Date Details (start date - stop date) Former Smoker NA - NA Tobacco Use/Smoking Question Answer Notes Are you a former smoker How long has it been since y ou last smoked? > 10 years Additional Findings: Tobacco Non-User Ex -moderate cigarette smoker (10-19/day) Problems Problem Type SNOMED Code ICD Code Onset Dates Problem Status W/U Status Risk Notes Problem Gastro-esophagea l reflux disease without esophagitis (391064023) Gastro-esophage al reflux disease without esophagitis (K21.9) Active confirmed Problem Spasm of sphincter of Oddi (32912758) Spasm of sphincter of Oddi (K83.4) Active confirmed Problem Dysphagia (37339802) Dysphagia, unspecified (R13.10) Active confirmed Plan Of Treatment Pending Test Test Name Order Date Colonoscopy 11/05/2018 Amylase, Serum 03/24/2018 Lipase, Serum 03/24/2018 CBC With Differential/Platelet 8 Hepatic Function Panel (7) 03/24/2018 Endoscopic Retrograde Cholangiopancreato graphy (ERCP) 12/09/2018 Esophagogastroduodenoscopy (EGD) 018 Insurance Providers Payer Name Payer Address Payer Phone Subscriber Number Group Number Insured Name Patient Relationship to Insured Coverage Start Date Coverage End Date [facility] [address] [place], [place] [id number] Ana Erwin Self - patient is the insured [facility] [address] [place], [place] [id number] Allan Erwin Spouse - patient is the spouse of the insured Medical (General) History Medical History History ICD Code Anxiety Hiatal hernia GERD Past acute pancreatitis Gallbladder disease SOD/papillary stenosis Obesity Hx of anemia (last CBC 10/2017 with norm al H/H) Hx of colon polyps Headaches Surgical History Surgery Date(Month/Year) delivery (54191):x 2 Cholecystectomy EUS :[place]--Large hiatal h ernia, few gastric polyps, erythematous antrum, hypoechoic foci in proximal panc body/head, likely due to resolving acute pancreatitis. path - fundic gland polyps, reactive gastropathy 07/02/2016 ERCP Aliperti--severe papill claude stenosis s/p biliary and pancreatic sphincterotomies. Dual duct protective stents placed and removed 08/14/2017. 08/12/2017 Partial hysterectomy (65862) Tubal ligation Left knee arthroscopy Lipoma removal from back Bladder surgery Small bowel capsule study EGD/Colonoscopy
--- OUTSIDE RECORDS SUMMARY | 2025-08-02 07:21 | XMS_ITS | Encounter Summary ---
Author Organization [facility] Address [address] [facility] [address] [place] [address] Phone Care Team Providers Care Tea And Spice Supervisor Name Role Phone Neymar Rueda MD Primary Care Prov ider Miguelito Reese MD Unavailable [phone] Encounter Details Date Type Department Care Team (Late st Contact Info) Description 10/18/2019 Orders Only [facility] Scanning, Provider [...] on file Legal Sex Female 9:02 AM PROFESSOR OF EDUCATION Gender Identity Not on file Sexual Orientation Not on file documented as of this encounter Plan of Treatment Upcoming Encounters Date Type Department Care Team (Latest Contact Info) Description 08/10/2025 7:30 AM PROFESSOR OF EDUCATION Hospital Encounter [facility] [address] Room [address] [place] [address] Jad Trujillo MD [address] [facility] [phone] [place] [address] 08/10/2025 7:30 AM PROFESSOR OF EDUCATION Anesthesia Event [facility] Operating Room [address] [place] [address] Harleen Wells B.A. 08/10/2025 7:30 AM PROFESSOR OF EDUCATION - 08/10/2025 10:45 AM PROFESSOR OF EDUCATION Surgery [facility] Operating Room [address] [place] [address] Jad Trujillo MD [address] [facility] [phone] [place] [address] XI REPAIR VENTRAL HERNIA - LAPAROSCPIC ROBOTIC ASSISTED Scheduled Procedures Name Priority Associated Diagnoses Date/Ti me XI REPAIR VENTRAL HERNIA - LAPAROSCPIC ROBOTIC ASSISTED Incarcerated incisional hernia 08/10/2025 7:30 AM PROFESSOR OF EDUCATION documented as of this encounter Procedures Procedure Name Priority Date/Time Associated Diagnosis Comments SCAN - LABS 10/18/2019 documented in this encounter Results * SCAN - LABS (10/18/2019) Provider Scanning Final Result documented in this encounter Visit Diagnoses Not on filedocumented in this encounter Care Teams Tea And Spice Supervisor Relationship Specialty Start Date End Date Neymar Rueda MD PCP - General 01/21/17 Miguelito Reese MD Consulting Physician General Surgery 02/03/19 documented as of this encounter
--- OUTSIDE RECORDS SUMMARY | 2025-08-02 07:22 | XMS_ITS | Clinical Summary ---
Author Organization [facility] [address] [facility] Address [address] [place] [address] Care Team Providers Care Abstract Clerk Name Role Phone Neymar Rueda MD Primary Care Prov ider Miguelito Reese MD Unavailable [phone] Allergies Active Allergy Reactions Criticality Noted Date Comments Metoclopramide Anaphylaxis,Shortnes s of breath,Dystonia,Hallucinations,Joint pain High 03/05/2019 Medications venlafaxine XR (EFFEXOR-XR) 75 mg 24 hr capsuleIndicati ons:Anxiety with Depression Take 1 capsule (75 mg total) by mouth every morning Active LORazepam (ATIVAN) 1 mg tabletIndicatio ns:Prevention of Chemotherapy-In duced Nausea and Vomiting Take 2 tablets (2 mg total) by mouth as needed Active HYDROcodone-jan taminophen (NORCO) 5-325 mg per tabletIndicatio ns:Pain Take 1 tablet by mouth every 4 (four) hours as needed for pain 10 tablet 9 Active Microlet Lancet misc 1 each by other route as needed Uses blood glucose monitor only as back up to Free Style Lizzeth 2 0 Active flash glucose scanning reader (FreeStyle Lizzeth 2 [place]) miscIndications :E11.65 Z79.4 Use as directed to check blood glucose. 1 each 3 2 Active diltiazem (TIAZAC) 180 mg 24 hr capsule Take 1 capsule (180 mg total) by mouth every morning Active valsartan (DIOVAN) 320 mg tablet Take 1 tablet (320 mg total) by mouth daily Active flash glucose sensor (FreeStyle Lizzeth 2 Sensor) kitIndications: Hypoglycemic disorder. USE DIRECTED TO CHECK BLOOD GLUCOSE 6 kit 5 3 Active Additional Information Patient taking differently: 1 each miscellaneous Every 14 days, Use as directed to check blood glucose. LEFT Arm / will change in 5 days , Indications: hypoglycemic disorder, Hypoglycemic disorder., Informant: Self, Reported on 07/28/2025 prochlorperazin e (COMPAZINE) 10 mg tabletIndicatio ns:Nausea and vomiting, unspecified vomiting type Take 1 tablet (10 mg total) by mouth every 6 (six) hours as needed for nausea or vomiting 20 tablet 3 4 Active ondansetron (ZOFRAN) 4 mg tablet TAKE 1 TO 2 TABLETS BY MOUTH EVERY 6 HOURS NEEDED 117 tablet 2 4 Active omeprazole (PriLOSEC) 40 mg capsule Take 1 capsule (40 mg total) by mouth daily 90 capsule 3 4 Active cyclobenzaprine (FLEXERIL) 10 mg tabletIndicatio ns:Muscle Spasm Take 1 tablet (10 mg total) by mouth 2 (two) times a day as needed for muscle spasms NONE IN MORE THAN A MONTH 4 Active rOPINIRole (REQUIP) 0.5 mg tabletIndicatio ns:Migraine Take 1 tablet (0.5 mg total) by mouth as needed (Migraine headache) 5 Active Active Problems Problem Noted Date Diagnosed Date Incarcerated incisional hernia 03/27/2025 Presence of neurostimulator 02/17/2025 Incarcerated ventral hernia 01/29/2024 Gastroesophageal reflux dise ase with esophagitis without hemorrhage 12/29/2022 Overview (12/29/2022): Added automatically from request for surgery [id number] RUQ pain 08/25/2022 Overview (08/25/2022): Added automatically from request for surgery [id number] Hypoglycemic disorder 12/27/2021 Spasm of sphincter of Oddi 12/25/2021 Chronic fatigue 12/22/2021 Dysphagia 08/13/2020 Overview (08/13/2020): Added automatically from request for surgery [id number] Abnormal finding on GI tract imaging 08/13/2020 Overview (08/13/2020): Added automatically from request for surgery [id number] Iron deficiency anemia 09/09/2019 Overview (09/09/2019): Added automatically from request for surgery [id number] Elevated liver enzymes 06/15/2019 Generalized abdominal pain 06/15/2019 Volume depletion 06/15/2019 Hyponatremia 06/15/2019 Acute kidney injury 06/15/2019 Sepsis 06/15/2019 Gastroparesis 05/02/2019 Overview (05/02/2019): Added automatically from request for surgery [id number] Severe malnutrition 03/30/2019 Intractable vomiting with nausea 03/29/2019 Overview (03/29/2019): Added automatically from request for surgery [id number] Nausea and vomiting 03/04/2019 Assessment & Plan (03/04/2019 7:01 AM CDT): Acute onset and persistent since 4pm . Contraindicated to her recent surgery. Discussed with Dr Reese, and will schedule zofran 8 q6 as well as ativan 0.[address] Reese to see. 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 Will continue to follow. Chronic bilateral pleural effusions 03/04/2019 Assessment & Plan (03/04/2019 7:03 AM CDT): Seen on CT, small, ? Complex on the original CT 02/20/19. She, however, denies CP or SOB. Blood cultures pending. Again, will continue to monitor Moderate malnutrition 03/04/2019 Diaphragmatic hernia with obstruction 02/03/2019 Overview (02/03/2019): Added automatically from request for surgery [id number] Iron deficiency anemia due to chronic blood loss 01/31/2019 Overview (02/01/2019): Added automatically from request for surgery Assessment & Plan (03/04/2019 7:03 AM CDT): Hemoglobin has been much more stable since surgery, off iron, will H/H daily Assessment & Plan (02/01/2019 9:20 AM CDT): Was sent in by Dr. Reese for worsening anemia. Baseline hemoglobin is about 8 g. Has been anemic for 7 years. Ferritin is low, documenting chronic iron deficiency anemia probably on the basis of chronic GI blood loss. Patient has chronic esophageal reflux disease. GI per is planning to perform an upper endoscopy today. I doubt if she is actively bleeding acutely. She appears to have more of her chronic GI blood loss problem. Would check a B12 and folic acid to be complete. GI has elected to transfuse her 1 unit of packed red blood cells. Chronic abdominal pain 11/01/2018 Assessment & Plan (02/01/2019 9:22 AM CDT): She appears to be under treatment for irritable bowel syndrome. Constipation 11/01/2018 Abdominal pain, epigastric 11/01/2018 Overview (11/02/2018): Added automatically from request for surgery [id number] Morbid obesity 03/04/2017 Assessment & Plan (02/01/2019 9:21 AM CDT): Patient has intentionally lost 15 lb. Outpatient diet is encouraged. Benign essential hypertension 03/04/2017 Assessment & Plan (03/04/2019 7:03 AM CDT): Home propranolol, adjust prn Assessment & Plan (02/01/2019 9:21 AM CDT): Continue the long-acting propranolol. 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 Dehydration Chronic anemia Transaminitis Encounters Date Type Department Care Team Description 07/28/2025 11:30 AM CDT Office Visit [facility] ([facility]) - [facility] Minimally Invasive Surgery [address] [place] [address] [address]th [address], [place] [address] Ashley Garcia NP Gastroparesis (Primary Dx); Chronic idiopathic constipation; Presence of neurostimulator; Encounter for adjustment and management of neurostimulator; Morbid obesity (HCC); Incarcerated ventral hernia 07/06/2025 Results Follow-Up [facility] Endocrinology Metabolism and Lipid [address] [facility] 13th [place] [address] [place] [address] Jared Monterroso MD PhD Thyroid Function Mayes 07/05/2025 3:35 PM CDT Lab [facility] Endocrinology Metabolism and Lipid [address] [facility] 5th [place] [address] [place] [address] Hypoglycemic disorder; Morbid obesity (HCC); Benign essential hypertension 07/05/2025 2:40 PM CDT Office Visit [facility] Endocrinology Metabolism and Lipid [address] [facility] 13th [place] [address] [place] [address] Jared Monterroso MD PhD Prediabetes (Primary Dx); Hypoglycemic disorder; Morbid obesity (HCC); Benign essential hypertension 05/26/2025 11:30 AM CDT Office Visit [facility]) - [facility] Minimally Invasive Surgery [address] [place] [address] 12th [address], [place] [address] Ashley Garcia NP Gastroparesis (Primary Dx); Presence of neurostimulator; Encounter for adjustment and management of neurostimulator from Last 3 Months Surgical History Surgery Date Site/Laterality Comments CHOLECYSTECTOMY 10/05/2011 - 10/04/2012 HYSTERECTOMY 10/05/2009 - 10/04/2010 Left the ovaries KNEE ARTHROSCOPY Left Date unknown years ago about 2011 ERCP 11/03/2018 x 3 COLONOSCOPY SECTION 10/05/1979 - 10/04/[id number] ESOPHAGOGASTRODUODENOSCOPY 02/02/2019 RETINAL LASER PROCEDURE 01/28/2019 Right retinal tear BLADDER SUSPENSION IR PICC LINE PLACEMENT > 5 YEARS 05/12/2019 N/A ENDOMETRIAL ABLATION before Hysterectomy HIATAL HERNIA REPAIR 02/09/2019 ESOPHAGOGASTRODUODENOSCOPY 03/31/2023 GASTRIC STIMULATOR IMPLANT SURGERY 06/30/2019 ESOPHAGOSCOPY W/ DILATION 10/21/2022 ESOPHAGOSCOPY W/ DILATION 07/04/2021 ESOPHAGOSCOPY W/ DILATION 10/19/2020 OTHER SURGICAL HISTORY 11/15/2019 Small Bowel Capsule Endoscopy DILATION AND CURETTAGE OF UTERUS x2 TOTAL KNEE ARTHROPLASTY 05/09/2024 Left GASTRIC STIMULATOR IMPLANT SURGERY 11/22/2024 REPLACEMENT ENTERRA STIMULATOR BATTERY FOR GASTROPARESIS Medical History Medical History Date Comments Recurrent pancreatitis Anemia GERD (gastroesophageal reflux disease) Hypertension Hiatal hernia PONV (postoperative nausea and vomiting) Dysphagia Chronic constipation Pyelonephritis History of transfusion Obesity Anxiety Migraine Gastroparesis s/p Enterra mikayla nalini stimulator 06/23 Pneumonia DVT (deep venous thrombosis) 05/2019 PIC C related Hypoglycemia possibly due to gastroparesis COVID-19 virus detected 04/2020 N/V/D, f atigue, body aches Delayed emergence from general anesthesia Family History Medical History Relation Name Comments Diabetes Father Family history of diabetes mellitus - (Added by TW Conv) Prostate cancer Father Family histo ry of malignant neoplasm of prostate - (Added by TW Conv) Heart attack Mother Hypertension Mother Family history of hypertension - (Added by TW Conv) Anesthesia problems Neg Hx Relation Name Status Comments Father (Age 79) Mother (Age 54) Social History Tobacco Use Types Packs/Day Years Used Date Smoking Tobacco: Former Cigarettes 2 19 1 4 - 1992 Passive Smoke Exposure: Past Smokeless Tobacco: Never Tobacco Cessation:Counseling Given: No Alcohol Use Standard Drinks/Week Comments No 0 [...] on file Legal Sex Female 9:02 AM LEGAL SERVICES PROFESSIONAL Gender Identity Not on file Sexual Orientation Not on file Obstetrics History Last Filed Vital Signs Vital Sign Reading Time Taken Comments Blood Pressure 155/76 07/28/2025 11:23 AM CDT Pulse 82 07/28/2025 11:23 AM CDT Temperature 36.4 C (97.6 F) 07/28/2025 11:23 AM CDT Respiratory Rate 16 12/28/2024 1:41 PM CDT Oxygen Saturation 96% 07/28/2025 11:23 AM CDT Inhaled Oxygen Concentration - - Weight 124.3 kg (274 lb) 07/28/2025 11:23 AM CDT Height 175.3 cm (5' 9) 07/28/2025 11:23 AM CDT Body Mass Index 40.46 07/28/2025 11:23 AM CDT Plan of Treatment Upcoming Encounters Date Type Department Care Team (Latest Contact Info) Description 08/10/2025 7:30 AM LEGAL SERVICES PROFESSIONAL Hospital Encounter [facility] Operating Room [address] [place] [address] Jad Trujillo MD [address] [phone] [place] [address] 08/10/2025 7:30 AM LEGAL SERVICES PROFESSIONAL Anesthesia Event [facility] Operating Room [address] [place] [phone] Harleen Wells B.A. 08/10/2025 7:30 AM LEGAL SERVICES PROFESSIONAL - 08/10/2025 10:45 AM LEGAL SERVICES PROFESSIONAL Surgery [facility] Operating Room [address] [place] [address] Jad Trujillo MD [address] [phone] [place] [address] XI REPAIR VENTRAL HERNIA - LAPAROSCPIC ROBOTIC ASSISTED Scheduled Procedures Name Priority Associated Diagnoses Date/Ti me XI REPAIR VENTRAL HERNIA - LAPAROSCPIC ROBOTIC ASSISTED Incarcerated incisional hernia 08/10/2025 7:30 AM LEGAL SERVICES PROFESSIONAL Health Maintenance Due Date Last Done Comments Breast Cancer Screening-Mammogram 1960 Depression Screening 1960 Osteoporosis Screening-Bone Density Scan 1960 Pneumococcal vaccine 65+ (1 of 1 - PCV) 2009 Zoster Vaccine (1 of 2) 2009 DTaP/Tdap/Td Vaccine (2 - Td or Tdap) 11/01/2020 11/01/2010 Well Visit 65+ 2024 Influenza Vaccine (#1) 2025 07/25/2022, 2014 Fall Risk Assessment 11/22/2025 11/22/2024 Colon Cancer Screening-Colonoscopy 12/10/20282018 Hepatitis B Screening Completed 05/29/1998 , 12/11/1997, 10/24/1997 Colon Cancer Screening-CT Colonography Discontinued 12/10/2018 Colon Cancer Screening-DNA Stool Discontinued 12/11/19 Colon Cancer Screening-FIT Discontinued 12/10/2018 Colon Cancer Screening-Sigmoidoscopy Discontinued 05/2019 Hepatitis C Screening Completed 06/15/2019 Medical Devices Implanted Type Area Clin Application Specialist Device Identifier Shelf Expiration Date Model / Serial / Lot Enterra [employer] Inc Neurostimulator Implantable 2.4inx2.2in Enterra Ii Gastric [id number] - [id number] - [id number] Implanted:Qty: 1 on 11/22/2024 by Edward Noe MD PhD at [facility] Neurostimulator N/A: Abdomen EN[employer] INC 2025 [id number] / [id number] / Cook [employer] Inc [id number] Cotton-Dickson 8.5fr 7cm Taper Tip Guidewire Proximal Distal Flap - [id number] Implanted:Qty: 1 on 11/03/2018 at [facility] Stent N/A: Bile Duct [employer] Inc 07/14/2021 [id number] / / [id number] Davol Inc/C R Bard [id number] Phasix Sepra 4x3in Monofilament Resorbable Rectangle Mesh - [id number] Implanted:Qty: 1 on 02/09/2019 by Miguelito Reese MD at [facility] [employer]ol Inc/C R Bard 12/02/2020 [id number] / / [id number] Medtronic Neuro 4351-35 Enterra 35cm Lead Unipolar Kit Stimulator - [id number] - [id number] Implanted:Qty: 1 on 06/30/2019 by Edward Noe MD PhD at [facility] N/A: Stomach Medtronic Inc 02/11/2021 4351-35 / [id number] / Medtronic Neuro 4351-35 Enterra 35cm Lead Unipolar Kit Stimulator - [id number] - [id number] Implanted:Qty: 1 on 06/30/2019 by Edward Noe MD PhD at [facility] N/A: Stomach Medtronic Inc 02/11/2021 4351-35 / [id number] / Medtronic Inc 69011 Neurostimulator Implantable 2.4inx2.2in Enterra Ii Gastric - [id number] - [id number] Implanted:Qty: 1 on 06/30/2019 by Edward Noe MD PhD at [facility] N/A: Abdomen Medtronic Inc 06/18/2020 [id number] / [id number] / Explanted Type Area Clin Application Specialist Device Identifier Shelf Expiration Date Model / Serial / Lot SigmaFlow Medical Inc 6571 [place] Flexi-Stent 7fr 3cm Small Pigtail Flexible .035in Stent - [id number] Implanted:Qty : 1 on 11/01/2018 by Corey Lauren MD at [facility] Explanted:Qty : 1 on 11/03/2018 at [facility] Stent N/A: Pancreas Mulligan [employer] Inc 08/04/2023 [id number] / / [id number] Conmed Chris [id number] Garland Viabil 10mm 8.5fr 6cm 200cm Fully Covered Self Expand Pull - [id number] - [id number] Implanted:Qty : 1 on 11/01/2018 by Corey Lauren MD at [facility] Explanted:Qty : 1 on 11/03/2018 at [facility] Stent N/A: Bile Duct Conmed Chris 07/15/2021 [id number] / [id number] / Procedures Procedure Name Priority Date/Time Associated Diagnosis Comments CBC WITHOUT DIFFERENTIAL Routine 07/05/2025 3:31 PM CDT Hypoglycemic disorder Morbid obesity (HCC) Benign essential hypertension COMPREHENSIVE METABOLIC PANEL Routine 07/05/2025 3:31 PM CDT Hypoglycemic disorder Morbid obesity (HCC) Benign essential hypertension LIPID PANEL Routine 07/05/2025 3:31 PM CDT Hypoglycemic disorder Morbid obesity (HCC) Benign essential hypertension THYROID FUNCTION CASCADE Routine 07/05/2025 3:31 PM CDT Hypoglycemic disorder Morbid obesity (HCC) Benign essential hypertension POCT HEMOGLOBIN A1C Routine 07/05/2025 2 :49 PM CDT Prediabetes POCT GLUCOSE 74063 Routine 07/05/2025 2: 48 PM CDT Prediabetes HEPATITIS PANEL, ACUTE Routine 06/15/2019 6:21 AM CDT COLONOSCOPY 12/10/2018 12:23 PM LEGAL SERVICES PROFESSIONAL from Last 3 Months or Most Recently Relevant to Health Maintenance Results * Thyroid Function Mayes (07/05/2025 3:31 PM CDT) TSH (Thyrotropin) 1.33 0.27 - 4.20 uIU/mL [facility] Blood 07/05/2025 3:31 PM CDT 07/05/2025 4:09 PM CDT Jared Monterroso MD PhD LAB BLOOD ORDERABL ES Final Result Performing Organization Address [facility] Co de Phone Number [facility] * CBC without differential (07/05/2025 3:31 PM CDT) White Blood Count 5.9 3.6 - 11.2 K/uL [facility] RBC 4.48 3.63 - 4.92 M/uL [facility] Hemoglobin 13.8 11.9 - 15.5 g/dL [facility] Hematocrit 42.1 36.1 - 44.3 % [facility] MCV 93.9 80.0 - 97.6 fL [facility] MCH 30.8 26.7 - 33.7 pg [facility] MCHC 32.7 32.7 - 35.5 g/dL [facility] RBC Dist Width 13.8 12.3 - 17.0 % [facility] Platelet Count 240 140 - 440 K/uL [facility] MPV 7.8 6.8 - 10.4 fL [facility] Blood 07/05/2025 3:31 PM CDT 07/05/2025 4:09 PM CDT Jared Monterroso MD PhD LAB BLOOD ORDERABL ES Final Result Performing Organization Address [facility] Co de Phone Number [facility] * Lipid panel (07/05/2025 3:31 PM CDT) Triglycerides 98 <150 mg/dL [facility] Comment: Desirable: <150 mg/dL, fasting <175 mg/dL, non-fasting Total Cholesterol 183 <200 mg/dL [facility] Total HDL-C Direct 82 >50 mg/dL [facility] Non-HDL cholesterol 101 <220 mg/dL [facility] Calculated LDL Chol 83 <190 mg/dL [facility] Blood 07/05/2025 3:31 PM CDT 07/05/2025 4:09 PM CDT Narrative [facility] - 07/05/2025 4:52 PM CDT Beginning February 01, 2025, LDL are now calculated by the Sargent-NIH equation (GENARO Cardiol 2020;5:540-8) which is more accuarate than the older Friedewald equation in patients with low LDL cholesterol or high triglycerides. For adults ages 40-79, the ACC/AHA recommends discussing your 10-year atherosclerotic cardiovascular disease risk with your health care provider. https://www.acc.org/ASCVDApp us Jared Monterroso MD PhD LAB BLOOD ORDERABL ES Final Result [facility] * (ABNORMAL) Comprehensive metabolic panel (07/05/2025 3:31 PM CDT) Total Protein 6.7 6.1 - 8.4 g/dL [facility] Albumin 4.1 3.5 - 5.2 g/dL [facility] Calcium 9.1 8.6 - 10.3 mg/dL [facility] BUN 15 7 - 23 mg/dL [facility] Total Bilirubin 0.48 0.20 - 1.40 mg/dL [facility] Alk Phos, Total 104 35 - 129 IU/L [facility] AST (SGOT) 15 11 - 47 IU/L [facility] ALT (SGPT) 19 6 - 53 IU/L [facility] Creatinine 0.96 0.60 - 1.10 mg/dL [facility] Sodium 141 135 - 145 mmol/L [facility] Potassium 4.4 3.3 - 5.1 mmol/L [facility] Chloride 106 95 - 107 mmol/L [facility] CO2 Content 26 21 - 29 mmol/L [facility] Glucose 104(H) 64 - 99 mg/dL [facility] Comment: NONFASTING GLUCOSE RANGE = 64-199 mg/dL FASTING GLUCOSE 64 - 99 = NORMAL FASTING GLUCOSE 100 - 125 = IMPAIRED FASTING GLUCOSE FASTING GLUCOSE >=126 = PROVISIONAL DIAGNOSIS OF DIABETES eGFR 65.7 >60.0 mL/min/1.7 3 m2 [facility] Blood 07/05/2025 3:31 PM CDT 07/05/2025 4:09 PM CDT Jared Monterroso MD PhD LAB BLOOD ORDERABL ES Final Result [facility] * (ABNORMAL) POCT hemoglobin A1c (07/05/2025 2:49 PM CDT) Pathologist [facility] Hemoglobin A1C, POC 5.9(A) 4.0 - 5.6 % Blood 07/05/2025 2:49 PM CDT Jared Monterroso MD PhD POINT OF CARE TEST ORDERABLES Final Result * POCT glucose (07/05/2025 2:48 PM CDT) Pathologist [facility] Glucose Blood, POC 135 Normal Fasting 70 - 100, Random <200 mg/dL Blood 07/05/2025 2:48 PM CDT Jared Monterroso MD PhD POINT OF CARE TEST ORDERABLES Final Result * Hepatitis panel, acute (06/15/2019 6:21 AM CDT) [facility] Hep A IgM Non-Reactive Non-Reactive [facility] Hep B core IgM Non-Reactive Non-Reactive [facility] Hep C Ab Non-Reactive Non-Reactive [facility] HepBsAg Nonreactive Nonreactive [facility] Blood specimen (specimen) 06/15/2019 6:21 AM CDT 06/15/2019 6:32 AM CDT David Stinson MD LAB MICROBIOLOGY - GENER AL ORDERABLES Final Result [facility] [address] [place] [address] * COLONOSCOPY (12/10/2018 12:23 PM LEGAL SERVICES PROFESSIONAL) Anatomical Region Laterality Modality Other Narrative Procedure Note Corey Lauren MD - 12/10/2018 12:23 PM CST ENDOSCOPY LAB Patient Name: Rosalinda العراقي Procedure Date: 12/10/2018 12:23 PM Admit Type: Outpatient Room: [facility] Date of : 1960 Instrument Name: [id number] Gender: Female Note Status: Finalized Procedure: Colonoscopy Indications: anemia Providers: Corey Lauren MD Referring MD: Neymar Rueda M.D. Medicines: Propofol per Anesthesia Complications: No immediate complications. Estimated Blood Loss: Estimated blood loss: none. Procedure: Pre-Anesthesia Assessment: - Pre-procedure physical examination revealed no contraindications to sedation. - The risks and benefits of the procedure and thesedation options and risks were discussed with the patient. All questions were answered and informed consent wasobtained. The benefits, risks and alternatives of the procedureand sedation were discussed and informed consent wasobtained. All questions were answered. Please refer to the signed informed consent document in the medical record. The colonoscopy was performed without difficulty. Thepatient tolerated the procedure well. The quality of the bowel preparation was good. The quality of the bowelpreparation was evaluated using the BBPS ([place] Bowel Preparation Scale) with scores of: Right Colon = 3 (entire mucosaseen well with no residual staining, small fragments ofstool or opaque liquid), Transverse Colon = 3 (entire mucosa seen well with no residual staining, small fragments of stool or opaque liquid) and Left Colon = 3 (entiremucosa seen well with no residual staining, small fragments of stool or opaque liquid). The total BBPS score equals 9. The bowel preparation used was SUPREP. Bowel prep was administered using a split dose. Bowel prep was administered using a split dose. The scope was passed under direct vision. The Colonoscope was introduced through the anus and advanced to the the cecum,identified by appendiceal orifice and ileocecal valve. Findings: Internal hemorrhoids were found during retroflexion. The exam was otherwise without abnormality. Impression: - Internal hemorrhoids. - The examination was otherwise normal. - No specimens collected. Recommendation: - Repeat colonoscopy in 10 years for screeningpurposes. Electronically signed by Corey Lauren MD Corey Lauren MD 12/10/2018 2:31:19 PM Number of Addenda: 0 Note Initiated On: 12/10/2018 12:23 PM Corey Lauren MD ENDOSCOPY PROCEDURES Final Result from Last 3 Months or Most Recently Relevant to Health Maintenance Insurance [facility] CHOICE PLUS BLUE [facility] CHOICE [place] [employer]ET[employer] MEDICARE [facility] CHOICE PLUS BLUE [facility] AETNA MEDICARE Advance Directives For more information, please contact: [phone] Documents on File Type Date Recorded Patient Marketing Intern Expl anation ADVANCE DIRECTIVE 06/23/2019 2:10 PM * Full Code (Latest Code Status on File) Date Activated Date Inactivated Comments 03/31/2023 10:31 AM 03/31/2023 4:41 PM * Full Code Date Activated Date Inactivated Comments 10/21/2022 9:40 AM 10/21/2022 5:07 PM * Full Code Date Activated Date Inactivated Comments 07/04/2021 9:31 AM 07/04/2021 6:13 PM * Full Code Date Activated Date Inactivated Comments 10/09/2020 8:07 AM 10/09/2020 2:16 PM * Full Code Date Activated Date Inactivated Comments 11/15/2019 8:56 AM 11/15/2019 4:17 PM Care Teams Abstract Clerk Relationship Specialty Start Date End Date Neymar Rueda MD PCP - General 01/21/17 Miguelito Reese MD Consulting Physician General Surgery 02/03/19
--- OUTSIDE RECORDS SUMMARY | 2025-08-02 07:23 | XMS_ITS | Clinical Summary ---
Author Organization [facility] Address [address] [place]: Epic Prelude ADT [place] [address] Care Team Providers Care [facility] Supervisor Name Role Phone Unavailable Primary Care Provider Unavailabl e Social History Tobacco Use Types Packs/Day Years Used Date Smoking Tobacco: Never Assessed Comments Unknown Sex and Gender Information Value Date Recorded Sex Assigned at Not on file Legal Sex Female 5:16 PM RESEARCH CLERK Gender Identity Not on file Sexual Orientation Not on file Plan of Treatment Health Maintenance Due Date Last Done Comments DTAP/TDAP/TD VACCINES (1 - Tdap) 1978 BREAST CANCER SCREENING 1999 COLORECTAL SCREENING 2004 Colorectal Cancer Screening 2004 FIT-DNA Q 3 years 2004 FIT/FOBT Q 1 year 2004 Flex Sig/CT Colonography Q 5 years 2004 PNEUMOCOCCAL VACCINE 50+ YEARS (1 of 1 - PCV) 08/18/20 09 ZOSTER VACCINE (1 of 2) 2009 OSTEOPOROSIS SCREENING 2024 INFLUENZA VACCINE (#1) 2025 RSV VACCINE (60+ or ) (1 - 1-dose 75+ series) 2034
--- OUTSIDE RECORDS SUMMARY | 2025-08-02 07:24 | XMS_ITS | Patient Health Record ---
Author Organization [facility], Address [address] [place] [address] Care Team Providers Care Hospice Fellow Name Role Phone Neymar Rueda Primary Care Provider Marvel Dorado Unavailable [phone] REASON FOR REFERRAL No Information MEDICATIONS Medication SIG (Take, Route, Fr equency, Duration) Notes Start Date End Date Status Propranolol HCl Acti ve Dexilant Active Paxil Active Dicyclomine HCl Acti ve SOCIAL HISTORY Tobacco Use: Social History Observation Description Date Details (start date - stop date) Never Smoker NA - NA Sex Assigned At : Social History Observation Description Sex Assigned At Unknown Tobacco Use/Smoking Question Answer Notes Are you a nonsmoker Alcohol Screen Question Answer Notes Did you have a drink containing alcohol in the p ast year? No Points 0 Interpretation Negative PLAN OF TREATMENT No Information Insurance Providers Payer Name Payer Address Payer Phone Subscriber Number Group Number Insured Name Patient Relationship to Insured Coverage Start Date Coverage End Date [facility] [employer] [address] [place] [phone] [id number] Ana [place] Self - patient is the insured [facility] [address] [place] [address] [phone] [id number] [place] Spouse - patient is the spouse of the insured MEDICAL (GENERAL) HISTORY Medical History History ICD Code high blood pressure migraines blood in stool
== END 2025-08-02 07:13 | disposition home or self-care (01) ==
LOC: ANHFOHIMG 07:16
PROVIDERS: PCP Family Medicine Adolescent Medicine; Visit Provider Obstetrics & Gynecology
DX: Z12.31 Encounter for screening mammogram for malignant neoplasm of breast (principal)
CPT/HCPCS: 77063; 77067

== ENCOUNTER 2025-09-07 11:21 | Outpatient (CLI) | payer MEDICARE, SELFPAY ==
--- NOTE | ~2025-09-07 | CT_ITS ---
EXAMINATION: CT brain wo/w con, 09/07/2025 11:30 [employer] HISTORY: Other amnesia, headaches, restless leg syndrome COMPARISON: No comparisons available. Technique: Axial images obtained of the brain without and with intravenous contrast. One or more of the following dose reduction techniques were used: automated exposure control, adjustment of the mA and/or kV according to patient size, use of iterative reconstruction technique. Findings: No acute infarct or parenchymal hemorrhage. There is no abnormal enhancement identified No abnormal mass or mass effect. No midline shift. No extra-axial fluid collections. No hydrocephalus. Mastoid air cells unremarkable. Sinuses and orbits unremarkable. No acute fracture. No significant facial or scalp soft tissue swelling evident. No radiopaque foreign body is seen. Impression: 1.No acute intracranial abnormality. If symptoms persist contrast-enhanced MRI may be of benefit Reviewed, dictated and finalized at location . [employer] [employer] Impression: 1.No acute intracranial abnormality. If symptoms persist contrast-enhanced MRI may be of benefit
[2025-09-07 11:54] LABS: Estimated Glomerular Filt Rate 55
== END 2025-09-07 11:22 | disposition home or self-care (01) ==
PROVIDERS: PCP Nurse Practitioner Family; Visit Provider Nurse Practitioner Family
DX: R41.3 Other amnesia (principal); H93.19 Tinnitus, unspecified ear; G43.909 Migraine, unspecified, not intractable, without status migrainosus; G25.81 Restless legs syndrome
CPT/HCPCS: 70470; Q9967

== ENCOUNTER 2025-09-15 10:20 | Outpatient (CLI) | payer MEDICARE, SELFPAY ==
--- NOTE | ~2025-09-15 | MMUS_ITS ---
EXAMINATION: MM diagnostic reddy RT w jay, US breast RT limited HISTORY: Additional imaging TECHNIQUE: Craniocaudal and mediolateral oblique 3-D tomosynthesis images were obtained and synthetic 2-D images were generated. CAD analysis was submitted and interpreted. Grayscale and color Doppler imaging were performed. COMPARISON: August 02. BREAST PARENCHYMAL COMPOSITION: Dense: The breasts are heterogeneously dense FINDINGS: No suspicious masses are seen. There is a sizable group of suspicious calcifications in the right upper outer quadrant. Within this sizable area, a couple of calcifications representing milk of calcium are seen. However, many of the calcifications are suspicious. In addition, there are calcifications, which are going toward the nipple, possibly segmental, more posterior to the dominant finding. There is approximately 2 cm gap between the posterior and anterior calcifications. Associated with the posterior with the tissue posterior to the primary finding are with some density and distortion. There may be an underlying mass. No unexplained architectural distortion is seen. There are no skin or nipple abnormalities identified. There is no adenopathy seen on the images submitted. ULTRASOUND FINDINGS: Sonography was performed through the 9-10 o'clock region in the area of the calcifications. There is an ill-defined masslike area which is heterogeneous and shows acoustic shadowing. Measurements are difficult to obtain because of the ill-defined nature. The area/mass measures on the order of 5.2 cm in greatest diameter. In the area posterior to this finding, where the posterior mammographic findings were seen, nothing is seen sonographically. IMPRESSION: Highly suspicious findings as described. It is recommended to do stereotactic/tomographic guided biopsy at the anterior most and posterior most of the findings. MR will likely be necessary. BI-RADS 5 - Highly suggestive of malignancy - appropriate action should be taken. Reviewed, dictated and finalized at location C. RMATICS SCIENTIST IMPRESSION: Highly suspicious findings as described. It is recommended to do stereotactic/t omographic guided biopsy at the anterior most and posterior most of the finding s. MR will likely be necessary. BI-RADS 5 - Highly suggestive of malignancy - appropriate action should be take n.
== END 2025-09-15 10:21 | disposition home or self-care (01) ==
LOC: ANHFOHIMG 10:21
PROVIDERS: PCP Nurse Practitioner Family; Visit Provider Obstetrics & Gynecology
DX: R92.8 Other abnormal and inconclusive findings on diagnostic imaging of breast (principal)
CPT/HCPCS: 76642; 77061; 77065; G0279